=== PATIENT | male | born 1990 | race Caucasian/White ===

== ENCOUNTER → 2016-09-27 | Outpatient (CLI) | payer BC ==
[2016-09-27 10:51] LABS: CH 32.4; CHCM 34.9; HCT 45.3 % (39.0-53.0); HDW 2.59; HGB 15.2 gm/dL (13.0-17.5); MCH 31.2 pg (25.0-35.0); MCHC 33.5 g/dL (31.0-37.0); MCV 93.2 fL (80.0-100.0); Mean Platelet Volume 7.2; RBC 4.86 m/uL (4.30-5.90); RDW 12.5 % (11.5-15.5); WBC 5.9 k/uL (3.8-10.6)
[2016-09-27 11:19] LABS: ALT 108 U/L (21-72); AST 170 U/L (17-59); Alkaline Phosphatase 59 U/L (38-126); Anion Gap 10 mmol/L; Blood Urea Nitrogen 21 mg/dL (9-20); Calcium 9.8 mg/dL (8.4-10.2); Carbon Dioxide 30 mmol/L (22-30); Chloride 104 mmol/L (98-107); Cholesterol 176 mg/dL (<200); Glucose 101 mg/dL (74-99); HDL Cholesterol 51 mg/dL (40-60); Non-African American GFR(MDRD) >60 (>60 ml/min/1.73 sqM); Sodium 144 mmol/L (137-145); Total Bilirubin 0.8 mg/dL (0.2-1.3); Total Protein 7.3 g/dL (6.3-8.2); Triglycerides 72 mg/dL (<150)
== END | disposition home or self-care (01) ==
LOC: LABWHC1 10:37
PROVIDERS: ATTEND Internal Medicine Clinical Cardiac Electrophysiology
DX: R07.9 Chest pain, unspecified (principal); E78.5 Hyperlipidemia, unspecified
CPT/HCPCS: 36415; 80053; 80061; 85027

== ENCOUNTER → 2020-10-23 | Outpatient (CLI) | payer BC ==
--- NOTE | 2020-10-23 10:30 | FL ---
ESOPHOGRAM. HISTORY: Dysphagia Esophagram was performed per the air contrast technique. The patient swallowed barium and effervesce nt crystals without difficulty or delay. Esophageal peristalsis and motility appear to be within normal limits. There is no evidence for filling defect, mass or diverticulum. No hiatal hernia seen. Subsequently single contrast cervical esophagram was performed which fails demonstrate evidence for a spiration penetration or mass. IMPRESSION: Unremarkable study.
== END ==
LOC: RADUSWWP 08:55
PROVIDERS: ATTEND Otolaryngology
DX: R13.10 Dysphagia, unspecified (principal)
CPT/HCPCS: 74220

== ENCOUNTER 2022-03-30 18:48 | Emergency (ER) | payer BC ==
[2022-03-30 19:02] VITALS: TEMP 98.1
--- NOTE | 2022-03-30 21:14 | ED ---
General Adult HPI - General Chief complaint: ENT Stated complaint: Candy stuck in throat Time Seen by Provider: 03/30/22 21:12 Source: patient Mode of arrival: ambulatory Limitations: no limitations - History of Present Illness Initial comments: Patient presents to the ED with his for evaluation. Patient states that he swallowed a "gummy candy" this morning, and he has had irritation along the right side of his throat ever since then. Patient states that he has noticed this irritation particularly when swallowing. Patient states that he is unsure if the candy got stuck in his throat. Patient states that he has been able to eat and swallow liquids since this incident. Patient states that he has had issues with swallowing in the past, and he states that he once saw a GI doctor for these symptoms and had a swallow study done. Patient denies fever or chills, headache, voice changes, dyspnea, cough or cold symptoms, dizziness, chest pain, abdominal pain, nausea or vomiting, or any other symptoms or complaints. - Related Data Home Medications Medication Instructions Recorded Confirmed Amoxicillin/Potassium Clav 1 tab PO BID 07/14/14 07/15/14 [Amoxicillin-Clav ER 1,000-62.5] predniSONE [Deltasone] 20 mg PO BID 07/15/14 07/15/14 Previous Rx's Medication Instructions Recorded Azithromycin [Zithromax Z-pack] 250 mg PO DIRECTED #6 tab 07/15/14 oxyCODONE HCL/ACETAMINOPHEN 1 - 2 each PO BID #40 tab.ir.ero 07/15/14 [Xartemis Xr 7.5-325 mg Tablet] Allergies Allergy/AdvReac Type Severity Reaction Status Date / Time No Known Allergies Allergy Verified 03/30/22 19:02 Review of Systems ROS Statement: Those systems with pertinent positive or pertinent negative responses have been documented in the HPI. ROS Other: All systems not noted in ROS Statement are negative. Past Medical History Past Medical History: No Reported History History of Any Multi-Drug Resistant Organisms: None Reported Additional Past Surgical History / Comment(s): CHEST TUBE Past Anesthesia/Blood Transfusion Reactions: No Reported Reaction Past Psychological History: No Psychological Hx Reported Smoking Status: Never smoker Past Alcohol Use History: Occasional Past Drug Use History: None Reported - Past Family History Mother Family Medical History: No Reported History General Exam Limitations: no limitations General appearance: alert, in no apparent distress Head exam: Present: atraumatic, normocephalic Eye exam: Present: normal appearance, EOMI ENT exam: Present: normal oropharynx, mucous membranes moist Neck exam: Present: other (Trachea is in midline). Absent: tenderness Respiratory exam: Present: normal lung sounds bilaterally. Absent: respiratory distress, wheezes, rales, rhonchi, stridor Cardiovascular Exam: Present: regular rate, normal rhythm, normal heart sounds, other (Normal radial pulses bilaterally) GI/Abdominal exam: Present: soft. Absent: distended, tenderness, guarding Neurological exam: Present: alert, oriented X3, CN II-XII intact. Absent: motor sensory deficit Psychiatric exam: Present: normal affect, normal mood Skin exam: Present: warm, dry, intact, normal color Course Vital Signs 03/30/22 19:00 Temperature 98.1 F Pulse Rate 69 Respiratory 20 Rate Blood Pressure 121/70 O2 Sat by Pulse 98 Oximetry - Reevaluation(s) Reevaluation #1: 03/30/22 22:08 Patient remains alert and breathing comfortably. Patient denies development of any new symptoms while in the ED. Patient reports that he has been able to eat food and drink fluids. Patient and are aware the patient's negative soft tissue neck x-rays. Patient feels comfortable going home with his at this time. Patient was instructed to follow up closely with his primary care provider, as well as a GI doctor. Patient was counseled about odynophagia/esophageal foreign bodies, and he was clearly explained return and follow-up instructions. Patient feels comfortable with this plan. Medical Decision Making - Medical Decision Making Patient is breathing comfortably, and he is able to eat food and drink fluids. Patient's soft tissue neck x-rays are negative. I do not suspect a significant esophageal impaction/obstruction, and I do not suspect an emergent medical condition at this time. Will discharge patient home with his at this time. Patient was instructed to follow up closely with a GI doctor. - Radiology Data Soft tissue neck x-rays: Negative cervical spine exam. Negative cervical soft tissue exam. Disposition Clinical Impression: Odynophagia Disposition: HOME SELF-CARE Condition: Stable Instructions (If sedation given, give patient instructions): Esophageal Foreign Body (ED) Additional Instructions: Return to the ER immediately should you develop new or worsening pain, inability to swallow, voice changes, trouble breathing, feeling dizzy or faint, or new or worsening symptoms. Follow up closely with your primary care provider, as well as a GI doctor. Is patient prescribed a controlled substance at d/c from ED?: No Referrals: Brian Duran MD [Primary Care Provider] - 1-2 days Jeannie Matthew MD [STAFF PHYSICIAN] - 1-2 days Time of Disposition: 22:10
--- NOTE | 2022-03-30 21:51 | XR ---
EXAMINATION TYPE: XR soft tissue neck DATE OF EXAM: 03/30/2022 COMPARISON: NONE HISTORY: Pain TECHNIQUE: 2 views FINDINGS: Cervical vertebra have normal alignment. Posterior elements are intact. Disc spaces are efren rly normal. Epiglottis is normal. Prevertebral soft tissues appear normal. Tonsils and adenoids appea r normal. Subglottic trachea appears normal. IMPRESSION: Negative cervical spine exam. Negative cervical soft tissue exam.
[2022-03-30 22:35] VITALS: BP 118/85; PULSE 79; RESP 18
== END 2022-03-30 22:35 | disposition home or self-care (01) ==
LOC: EC 18:48
DX: R13.10 Dysphagia, unspecified (principal)
CPT/HCPCS: 70360; 99284

== ENCOUNTER 2022-04-05 09:20 | Day surgery (SDC) | payer BC ==
[~2022-04-05 09:20] MED LIST: LACTATED RINGERS 1,000 ML IV SCH
[2022-04-05 09:40] VITALS: TEMP 97.2
[2022-04-05] MEDS ORDERED: PROPOFOL 10 MG/ML 20 ML VIAL IV ONE (11:07)
[2022-04-05] MEDS ORDERED: GLYCOPYRROLATE 0.2 MG/ML 2 ML VIAL ONE (11:07)
[2022-04-05] MEDS ORDERED: LIDOCAINE 2% INJ 20 MG/ML (2 ML VIAL) ONE (11:07)
[2022-04-05] MEDS ORDERED: KETAMINE 10 MG/ML 20 ML VIAL ONE (11:07)
--- NOTE | 2022-04-05 11:22 | P.PCN ---
Date of Procedure: 04/05/22 Procedure(s) Performed: BRIEF HISTORY: Patient is a 32-year-old, pleasant, white male scheduled for an upper endoscopy as a part of evaluation of long-standing history of GERD. He has been having intermittent dysphagia to solids for the last several years. Currently on omeprazole 20 mg twice daily and gradually improving.. PROCEDURE PERFORMED: Esophagogastroduodenoscopy with biopsy. PREOPERATIVE DIAGNOSIS: Long-standing history of GERD and intermittent dysphagia to solids. IV sedation per anesthesia. PROCEDURE: After informed consent was obtained, the patient was brought into the endoscopy unit. IV sedation was administered by Anesthesia under continuous monitoring. Initially the Olympus GIF-140 video endoscope was inserted into the mouth. Esophagus intubated without any difficulty. It was gradually advanced into the stomach and duodenum and carefully examined. The bulb and the second part of the duodenum appeared normal. The scope at this time was withdrawn to the stomach, adequately insufflated with air, and upon careful examination, mucosa of the antrum and mild gastritis and biopsies were done from this area., body, cardia and the fundus appeared normal. The scope was then withdrawn into the esophagus. The GE junction was located at 42 cm from the incisors. Mall hiatal hernia noted. There were linear erosions in the distal esophagus consistent with LA grade B reflux esophagitis. No esophageal structure noted. Abscesses were done from the distal esophagus. The rest of esophagus appeared normal and the patient tolerated the procedure well. IMPRESSION: 1. Linear erosions in the distal esophagus consistent with LA grade B reflux esophagitis. 2. Small hiatal hernia 3. Mild antral gastritis and duodenitis. RECOMMENDATIONS: The findings of this examination were discussed with the patient as well as his family. He was advised to continue with omeprazole 20 mg twice daily and follow antireflux measures..
[2022-04-05 11:29] VITALS: RESP 16
[2022-04-05 11:47] VITALS: BP 119/75; PULSE 81
== END 2022-04-05 12:43 | disposition home or self-care (01) ==
LOC: ORWHC2ENDO 09:20
PROVIDERS: ATTEND Internal Medicine Gastroenterology
DX: K21.00 Gastro-esophageal reflux disease with esophagitis, without bleeding (principal); K29.50 Unspecified chronic gastritis without bleeding; K29.80 Duodenitis without bleeding; K44.9 Diaphragmatic hernia without obstruction or gangrene; Z87.891 Personal history of nicotine dependence
CPT/HCPCS: 88305; 43239; J2704; J2001

== ENCOUNTER 2024-06-25 20:18 | Emergency (ER) | payer BC ==
[2024-06-25] MEDS: SODIUM CHLORIDE 0.9% 1,000 ML IV STA (21:22)
[2024-06-25 21:25] LABS: Glucose,Whole Blood 127 mg/dL (70-110)
--- NOTE | 2024-06-25 21:30 | ED ---
Dizziness HPI - General Chief Complaint: Syncope Stated Complaint: syncope Time Seen by Provider: 06/25/24 21:00 Source: EMS, RN notes reviewed Mode of arrival: EMS - History of Present Illness Initial Comments: 34-year-old male with no significant past medical history presenting to the ER via EMS for syncope 2 hours ago he. States arrived at a restaurant with his family, when he started to feel hot and sweaty. States he stood up in an attempt to get outside to get fresh air, but reports he syncopized on his way out the door of the restaurant. There were many witnesses to the fall report they do not believe he hit his head. Patient states he was unconscious for about 30 seconds, then came to when EMS was called. Patient states he is currently asymptomatic. Denies any chest pain, shortness of breath, abdominal pain, back pain prior or after the syncopal event. States he does have a history of syncope without identifying cause. Denies any cardiac or pulmonary conditions. He does reports he took a THC gummy, about 20 mg, a couple hours before the syncopal event. Denies any injuries from the fall. He is a current tobacco smoker - Related Data Home Medications Medication Instructions Recorded Confirmed Ascorbic Acid [Vitamin C] 1 tab PO DAILY 04/04/22 04/05/22 Vitamin B Complex 1 cap PO DAILY 04/04/22 04/05/22 Allergies Allergy/AdvReac Type Severity Reaction Status Date / Time No Known Allergies Allergy Verified 06/25/24 20:29 Review of Systems ROS Statement: Those systems with pertinent positive or pertinent negative responses have been documented in the HPI. ROS Other: All systems not noted in ROS Statement are negative. Past Medical History Past Medical History: No Reported History, GERD/Reflux History of Any Multi-Drug Resistant Organisms: None Reported Past Surgical History: Tonsillectomy Additional Past Surgical History / Comment(s): CHEST TUBE Past Anesthesia/Blood Transfusion Reactions: No Reported Reaction Past Psychological History: No Psychological Hx Reported Smoking Status: Never smoker Past Alcohol Use History: Occasional Past Drug Use History: None Reported, Marijuana - Past Family History Mother Family Medical History: No Reported History General Exam Limitations: no limitations General appearance: alert, in no apparent distress Head exam: Present: atraumatic, normocephalic, normal inspection Eye exam: Present: normal appearance, PERRL, EOMI. Absent: scleral icterus, conjunctival injection, periorbital swelling ENT exam: Present: normal exam, mucous membranes moist Neck exam: Present: normal inspection. Absent: tenderness, meningismus, lymphadenopathy Respiratory exam: Present: normal lung sounds bilaterally. Absent: respiratory distress, wheezes, rales, rhonchi, stridor Cardiovascular Exam: Present: regular rate, normal rhythm, normal heart sounds. Absent: systolic murmur, diastolic murmur, rubs, gallop, clicks GI/Abdominal exam: Present: soft, normal bowel sounds. Absent: distended, tenderness, guarding, rebound, rigid Extremities exam: Present: normal inspection, full ROM, normal capillary refill. Absent: tenderness, pedal edema, joint swelling, calf tenderness Neurological exam: Present: alert, oriented X3, CN II-XII intact Psychiatric exam: Present: normal affect, normal mood Skin exam: Present: warm, dry, intact, normal color. Absent: rash Course Vital Signs 06/25/24 06/25/24 20:19 22:01 Temperature 98.1 F 98.5 F Pulse Rate 79 79 Respiratory 19 18 Rate Blood Pressure 133/79 132/80 O2 Sat by Pulse 97 98 Oximetry EKG Findings - EKG Results: EKG: interpreted by ERMD (EKG reveals normal sinus rhythm with no ST changes this. Ventricular rate 80 bpm, CO interval 174, QRS duration 108, QT/QTc 337/373) Medical Decision Making - Medical Decision Making Was pt. sent in by a medical professional or institution (Dr. PA, TRAINING AND DEVELOPMENT DIRECTOR, urgent care, hospital, or half-way...) When possible be specific @ -[No] Did you speak to anyone other than the patient for history (EMS, parent, family, police, friend...)? What history was obtained from this source @ -Patient's supplemented history Did you review nursing and triage notes (agree or disagree)? Why? @ -[I reviewed and agree with nursing and triage notes] Were old charts reviewed (outside hosp., previous admission, EMS record, old EKG, old radiological studies, urgent care reports/EKG's, half-way records)? Report findings @ -[No old charts were reviewed] Differential Diagnosis (chest pain, altered mental status, abdominal pain women, abdominal pain men, vaginal bleeding, weakness, fever, dyspnea, syncope, headache, dizziness, GI bleed, back pain, seizure, CVA, palpatations, mental health, musculoskeletal)? @ -Differential Syncope: Valvular disease, hypertrophic cardiomyopathy, pulmonary embolism, tamponade, tachycardia, bradycardia, IL, hypovolemia, hemorrhage, dissection, anemia, intracranial hemorrhage, seizure, hypoglycemia, carbon monoxide poisoning, this is not meant to be an all-inclusive list. EKG interpreted by me (3pts min.). @ -[As above] X-rays interpreted by me (1pt min.). @ -Chest x-ray reveals small focal density in left upper lung field, follow-up recommended, otherwise no acute pulmonary process CT interpreted by me (1pt min.). @ -[None done] U/S interpreted by me (1pt. min.). @ -[None done] What testing was considered but not performed or refused? (CT, X-rays, U/S, labs)? Why? @ -[None] What meds were considered but not given or refused? Why? @ -[None] Did you discuss the management of the patient with other professionals (professionals i.e. , PA, TRAINING AND DEVELOPMENT DIRECTOR, lab, RT, psych nurse, social secretary, scientific programmer, teacher, occupational health and safety officer, business case analyst)? Give summary @ -[No] Was smoking cessation discussed for >3mins.? @ -[No] Was critical care preformed (if so, how long)? @ -[No] Were there social determinants of health that impacted care today? How? (Homelessness, low income, unemployed, alcoholism, drug addiction, transpo rtation, low edu. Level, literacy, decrease access to med. care, group home, rehab)? @ -[No] Was there de-escalation of care discussed even if they declined (Discuss DNR or withdrawal of care, Hospice)? DNR status @ -[No] What co-morbidities impacted this encounter? (DM, HTN, Smoking, COPD, CAD, Cancer, CVA, ARF, Chemo, Hep., AIDS, mental health diagnosis, sleep apnea, morbid obesity)? @ -[None] Was patient admitted / discharged? Hospital course, mention meds given and route, prescriptions, significant lab abnormalities, going to OR and other pertinent info. @ -Discharge. This is a 34-year-old male presenting for syncopal episode prior to arrival. Patient does not believe he hit his head. He is currently asymptomatic. Vital signs are within normal limits. Laboratory studies including CBC, CMP, lactic acid unremarkable. Chest x-ray reveals small focal density left upper lung field, however otherwise no acute process. EKG reveals normal sinus rhythm with no ST changes. Discussed findings with patient. There is not appear to be emergent etiology causing syncopal episode today. Advised to follow-up with PCP for echocardiogram. Return precautions discussed, patient is agreeable to this plan. Case was discussed with my ED attending Dr. Denis. Patient stable at time of discharge. Undiagnosed new problem with uncertain prognosis? @ -[No] Drug Therapy requiring intensive monitoring for toxicity (Heparin, Nitro, Insulin, Cardizem)? @ -[No] Were any procedures done? @ -[No] Diagnosis/symptom? @ -Syncope Acute, or Chronic, or Acute on Chronic? @ -Acute Uncomplicated (without systemic symptoms) or Complicated (systemic symptoms)? @ -Uncomplicated Side effects of treatment? @ -[No] Exacerbation, Progression, or Severe Exacerbation? @ -[No] Poses a threat to life or bodily function? How? (Chest pain, USA, IL, pneumonia, PE, COPD, DKA, ARF, appy, cholecystitis, CVA, Diverticulitis, Homicidal, Suicidal, threat to staff... and all critical care pts) @ -Not at this time - Lab Data Result diagrams: 06/25/24 21:17 06/25/24 21:17 Lab Results 06/25/24 06/25/24 06/25/24 Range/Units 21:17 21:17 21:17 WBC 10.6 (3.8-10.6) k/uL RBC 5.15 (4.30-5.90) m/uL Hgb 15.5 (13.0-17.5) gm/dL Hct 45.7 (39.0-53.0) % MCV 88.8 (80.0-100.0) fL MCH 30.1 (25.0-35.0) pg MCHC 33.8 (31.0-37.0) g/dL RDW 12.3 (11.5-15.5) % Plt Count 272 (150-450) k/uL MPV 6.6 Neutrophils % 75 % Lymphocytes % 16 % Monocytes % 6 % Eosinophils % 2 % Basophils % 1 % Neutrophils # 8.0 H (1.3-7.7) k/uL Lymphocytes # 1.7 (1.0-4.8) k/uL Monocytes # 0.6 (0-1.0) k/uL Eosinophils # 0.2 (0-0.7) k/uL Basophils # 0.1 (0-0.2) k/uL Sodium 140 (137-145) mmol/L Potassium 4.1 (3.5-5.1) mmol/L Chloride 106 (98-107) mmol/L Carbon Dioxide 23 (22-30) mmol/L Anion Gap 11 mmol/L BUN 18 (9-20) mg/dL Creatinine 0.97 (0.66-1.25) mg/dL Est GFR (CKD-EPI)AfAm >90 (>60 ml/min/1.73 sqM) Est GFR (CKD-EPI)NonAf >90 (>60 ml/min/1.73 sqM) Glucose 93 (74-99) mg/dL POC Glucose (mg/dL) (70-110) mg/dL POC Glu Manufacturing Inspector ID Plasma Lactic Acid Neftali 1.9 (0.7-2.0) mmol/L Calcium 9.4 (8.4-10.2) mg/dL Total Bilirubin 0.6 (0.2-1.3) mg/dL AST 35 (17-59) U/L ALT 37 (4-49) U/L Alkaline Phosphatase 59 (38-126) U/L Troponin I (0.000-0.034) ng/mL Total Protein 7.2 (6.3-8.2) g/dL Albumin 4.3 (3.5-5.0) g/dL 06/25/24 06/25/24 Range/Units 21:17 21:24 WBC (3.8-10.6) k/uL RBC (4.30-5.90) m/uL Hgb (13.0-17.5) gm/dL Hct (39.0-53.0) % MCV (80.0-100.0) fL MCH (25.0-35.0) pg MCHC (31.0-37.0) g/dL RDW (11.5-15.5) % Plt Count (150-450) k/uL MPV Neutrophils % % Lymphocytes % % Monocytes % % Eosinophils % % Basophils % % Neutrophils # (1.3-7.7) k/uL Lymphocytes # (1.0-4.8) k/uL Monocytes # (0-1.0) k/uL Eosinophils # (0-0.7) k/uL Basophils # (0-0.2) k/uL Sodium (137-145) mmol/L Potassium (3.5-5.1) mmol/L Chloride (98-107) mmol/L Carbon Dioxide (22-30) mmol/L Anion Gap mmol/L BUN (9-20) mg/dL Creatinine (0.66-1.25) mg/dL Est GFR (CKD-EPI)AfAm (>60 ml/min/1.73 sqM) Est GFR (CKD-EPI)NonAf (>60 ml/min/1.73 sqM) Glucose (74-99) mg/dL POC Glucose (mg/dL) 127 H (70-110) mg/dL POC Glu Manufacturing Inspector ID Ed Peacock Plasma Lactic Acid Neftali (0.7-2.0) mmol/L Calcium (8.4-10.2) mg/dL Total Bilirubin (0.2-1.3) mg/dL AST (17-59) U/L ALT (4-49) U/L Alkaline Phosphatase (38-126) U/L Troponin I <0.012 (0.000-0.034) ng/mL Total Protein (6.3-8.2) g/dL Albumin (3.5-5.0) g/dL Disposition Clinical Impression: Vasovagal syncope Disposition: HOME SELF-CARE Condition: Stable Instructions (If sedation given, give patient instructions): Syncope (ED) Additional Instructions: Follow-up with PCP for echocardiogram. Please return to the Emergency Department if symptoms worsen or any other concerns. Is patient prescribed a controlled substance at d/c from ED?: No Referrals: James Og MD [Primary Care Provider] - 1-2 days Time of Disposition: 22:15
[2024-06-25 21:38] LABS: Basophils # (A) 0.1 k/uL (0-0.2); Basophils % (A) 1 %; Eosinophils # (A) 0.2 k/uL (0-0.7); Eosinophils % (A) 2 %; HCT 45.7 % (39.0-53.0); HGB 15.5 gm/dL (13.0-17.5); Lymphocytes # (A) 1.7 k/uL (1.0-4.8); Lymphocytes % (A) 16 %; MCH 30.1 pg (25.0-35.0); MCHC 33.8 g/dL (31.0-37.0); MCV 88.8 fL (80.0-100.0); Mean Platelet Volume 6.6; Monocytes # (A) 0.6 k/uL (0-1.0); Monocytes % (A) 6 %; Neutrophils % (A) 75 %; Platelet Count 272 k/uL (150-450); RBC 5.15 m/uL (4.30-5.90); RDW 12.3 % (11.5-15.5); WBC 10.6 k/uL (3.8-10.6)
--- NOTE | 2024-06-25 21:43 | XR ---
EXAMINATION TYPE: XR chest 2V DATE OF EXAM: 06/25/2024 COMPARISON: None INDICATION: Syncopal episode TECHNIQUE: Frontal and lateral views of the chest are obtained. FINDINGS: The heart size is normal. The pulmonary vasculature is normal. There is a 0.9 cm focal density in the left upper lung field. Follow-up is recommended. No suspicious focal consolidation is evident.. IMPRESSION: 1. Small focal density in the left upper lung field. Follow-up is recommended. 2. Acute pulmonary process is not otherwise identified. [facility], Workstation: [facility], 06/25/2024 9:40 PM
[2024-06-25 21:51] LABS: ALT 37 U/L (4-49); AST 35 U/L (17-59); African American GFR (CKD) >90 (>60 ml/min/1.73 sqM); Albumin 4.3 g/dL (3.5-5.0); Alkaline Phosphatase 59 U/L (38-126); Anion Gap 11 mmol/L; Blood Urea Nitrogen 18 mg/dL (9-20); Calcium 9.4 mg/dL (8.4-10.2); Carbon Dioxide 23 mmol/L (22-30); Chloride 106 mmol/L (98-107); Glucose 93 mg/dL (74-99); Non-African American GFR(CKD) >90 (>60 ml/min/1.73 sqM); Potassium 4.1 mmol/L (3.5-5.1); Sodium 140 mmol/L (137-145); Total Bilirubin 0.6 mg/dL (0.2-1.3); Total Protein 7.2 g/dL (6.3-8.2)
[2024-06-25 22:03] VITALS: RESP 18
[2024-06-25 22:25] VITALS: BP 130/68; PULSE 83; TEMP 98.7
== END 2024-06-25 22:25 | disposition home or self-care (01) ==
LOC: EC 20:18
CPT/HCPCS: 36415; 71046; 80053; 83605; 84484; 85025; 93005; 96360; 99284